=== PATIENT | female | born 1995 | race Caucasian/White ===

== ENCOUNTER 2018-04-25 01:18 | Emergency (ER) | payer OTHER ==
[2018-04-25 01:36] VITALS: BP 126/63
[2018-04-25] MEDS ORDERED: HYDROXYZINE PAMOATE 25 MG CAPSULE (4 CAP/ER DISP) PO PRN (02:42)
[2018-04-25] MEDS ORDERED: FLUOXETINE HCL 20 MG CAPSULE PO ONE (02:42)
--- NOTE | 2018-04-25 02:47 | ER Document Report ---
ED General - General Chief Complaint: Anxiety Stated Complaint: ANXIETY Time Seen by Provider: 04/25/18 02:18 Notes: Patient is a 22-year-old female that comes to the emergency department for chief complaint of anxiety and depression. She states that she has a 2-month- old baby, she states that her baby has a urinary tract and gastrointestinal abnormality that causes her to cry almost all day every day. She states that she does not feel attached to her child for this reason. She states that she almost has no sleep, she states that she has been very depressed over the past few weeks. She states she feels like she needs some sort of mood stabilizer or antidepressant, she also states she feels like she needs something to help her sleep. She denies SI or HI. She states that she has had depression in the past , is on Lexapro and Wellbutrin at different points although she felt one was especially helpful for her. She is on no current medications. She is not breast-feeding, she did the first month but then this became impractical. TRAVEL OUTSIDE OF THE [place] IN LAST 30 DAYS: No Past Medical History - General Information source: Patient - Social History Smoking Status: Never Smoker Frequency of alcohol use: None Drug Abuse: None Lives with: Family Family History: Reviewed & Not Pertinent Psychiatric Medical History: Reports: Hx Depression Surgical Hx: Negative - Immunizations Immunizations up to date: Yes Hx Diphtheria, Pertussis, Tetanus Vaccination: Yes Review of Systems - Review of Systems Constitutional: No symptoms reported EENT: No symptoms reported Cardiovascular: No symptoms reported Respiratory: No symptoms reported Gastrointestinal: No symptoms reported Genitourinary: No symptoms reported Female Genitourinary: No symptoms reported Musculoskeletal: No symptoms reported Skin: No symptoms reported Hematologic/Lymphatic: No symptoms reported Neurological/Psychological: No symptoms reported Physical Exam - Vital signs Vitals: Temp Pulse Resp BP Pulse Ox 98.2 F 77 18 126/63 H 98 04/25/18 01:19 04/25/18 01:19 04/25/18 01:19 04/25/18 01:19 04/25/18 01:19 - Notes Notes: GENERAL: Alert, interacts well. No acute distress. HEAD: Normocephalic, atraumatic. EYES: Pupils equal, round, and reactive to light. Extraocular movements intact. ENT: Oral mucosa moist, tongue midline. Oropharynx unremarkable. Airway patent. Nares patent, no nasal septal hematoma, TM's intact. NECK: Full range of motion. Supple. Trachea midline. LUNGS: Clear to auscultation bilaterally, no wheezes, rales, or rhonchi. No respiratory distress. HEART: Regular rate and rhythm. No murmur ABDOMEN: Soft, non-tender. Non-distended. Bowel sounds present in all 4 quadrants. GENITOURINARY: Deferred EXTREMITIES: Moves all 4 extremities spontaneously. No edema, normal radial and dorsalis pedis pulses bilaterally. No cyanosis. BACK: no cervical, thoracic, lumbar midline tenderness. No saddle anesthesia, normal distal neurovascular exam. NEUROLOGICAL: Alert and oriented x3. Normal speech. [cranial nerves II through XII grossly intact]. PSYCH: Patient with puffy eyes, appears to have been crying, however she is talkative, engaging, makes good eye contact SKIN: Warm, dry, normal turgor. No rashes or lesions noted. Course - Re-evaluation Re-evalutation: Patient has puffy eyes from being awake and crying, she is very well-appearing otherwise. She is very conversational, makes good eye contact, is very easy to reason with. Vital signs unremarkable. Patient reports she called to set up a mental health appointment with a set up her appointment for 2-1/2 weeks. Patient actually works at Hospital, she has done a lot of research already, she is very educated and currently working on her Master's in biology she reports. I discussed different options for antidepressants (she is not breast-feeding), I recommended Prozac for her. She states she is very agreeable with this because she has already researched different options and this is the one that she felt would benefit her the most. She wants to be provided with Vistaril for anxiety/sleep. Patient has 2-1/2- week follow-up. She is not suicidal or homicidal. Discussed states she will return if she becomes suicidal or homicidal, she states she would "never do anything to hurt the baby or anybody else". - Vital Signs Vital signs: Temp Pulse Resp BP Pulse Ox 98.2 F 77 18 126/63 H 98 04/25/18 01:19 04/25/18 01:19 04/25/18 01:19 04/25/18 01:19 04/25/18 01:19 Discharge - Discharge Clinical Impression: Anxiety Depression Qualifiers: Depression Type: depression Qualified Code(s): F53.0 - depression Condition: Stable Disposition: HOME, SELF-CARE Instructions: Anxiety ([facility]) Additional Instructions: We are starting you on Prozac antidepressant for your depression. Please follow-up with your 2-1/2-week appointment for additional evaluation and monitoring. Take the Vistaril if needed for anxiety/sleep. Return immediately for any concerning symptoms or something is not right. Prescriptions: Fluoxetine HCl [Prozac 20 mg Capsule] 20 mg PO DAILY #30 capsule Hydroxyzine Pamoate [Vistaril 25 mg Capsule] 1 - 2 cap PO Q6 PRN #30 capsule PRN Reason: Forms: Return to School
== END 2018-04-25 03:39 | disposition home or self-care (01) ==
LOC: ER 01:18
DX: F53.0 Postpartum depression (principal); F41.9 Anxiety disorder, unspecified
CPT/HCPCS: 99283; J3490